=== PATIENT | female | born 1945 | race Hispanic/Latino ===

== ENCOUNTER 2020-02-24 07:30 | Observation (INO) | payer OTHER ==
[2020-02-22 12:59] VITALS: BP 177/72
[2020-02-22 13:56] LABS: BASOPHILS % (AUTO) 0.5 % (0.0-5.0); EOSINOPHILS % (AUTO) 1.2 % (0.0-8.0); HEMATOCRIT 37.8 % (36-48); LYMPHOCYTES % (AUTO) 44.9 % (21.0-51.0); MEAN CORPUSCULAR HEMOGLOBIN 32.2 pg (27.0-33.0); MEAN CORPUSCULAR HGB CONC 33.1 g/dL (32.0-36.0); MEAN CORPUSCULAR VOLUME 97.4 fL (79-99); MONOCYTES % (AUTO) 8.6 % (3.0-13.0); NEUTROPHILS % (AUTO) 44.6 % (40.0-77.0); PLATELET COUNT (AUTO) 232 K/uL (130-400); RED BLOOD CELL COUNT(AUTO) 3.88 MIL/uL (4.00-5.50); RED CELL DISTRIBUTION WIDTH 12.9 % (11.0-15.5); WHITE BLOOD COUNT (AUTO) 4.2 K/uL (4.8-10.8)
[2020-02-22 14:11] LABS: INR 0.97 (0.85-1.15); PARTIAL THROMBOPLASTIN TIME 29.2 SEC (26.3-35.5); PROTHROMBIN TIME 10.5 SEC (9.6-11.6)
[2020-02-22 14:12] LABS: CREATININE 0.8 mg/dL (0.5-1.5)
[2020-02-22 14:54] LABS: APPEARANCE,URINE Clear (CLEAR); BILIRUBIN,URINE Negative (NEGATIVE); COLOR,URINE Yellow (YELLOW); GLUCOSE, URINE (UA) Negative (NEGATIVE); KETONES,URINE Trace mg/dL (NEGATIVE); LEUKOCYTE ESTERASE ,URINE Small (NEGATIVE); NITRATE,URINE Negative (NEGATIVE); OCCULT BLOOD,URINE Negative (NEGATIVE); PH,URINE 5.5 (5.0-8.0); PROTEIN,URINE Negative (NEGATIVE)
[2020-02-22 15:09] LABS: BACTERIA,URINE Few /HPF (None Seen); MUCUS,URINE Rare LPF (None Seen); SQUAMOUS EPITHELIAL CELL,UR Moderate /HPF (0-2)
[2020-02-24] VITALS (25 sets, daily range): BP systolic 120–183; BP diastolic 55–82
[~2020-02-24] VITALS: Ht 148.6 cm; Wt 65.3 kg
[2020-02-24] MEDS ORDERED: LEVE500T19 PO ×2 (08:52→08:59)
[2020-02-24] MEDS ORDERED: AMLO2.5T4 PO ×2 (08:52→08:59)
[2020-02-24] MEDS ORDERED: LEVO5TAB13 PO (08:52)
[2020-02-24] MEDS ORDERED: FAMO40TA7 PO (08:52)
[2020-02-24] MEDS ORDERED: METO-408 PO (08:52)
[2020-02-24] MEDS ORDERED: OMEP40CA13 PO (08:52)
[2020-02-24] MEDS ORDERED: BACL5TAB PO (08:59)
[2020-02-24] MEDS ORDERED: DONE5TAB33 PO (08:59)
[2020-02-24] MEDS ORDERED: TOPI100C5 PO (08:59)
[2020-02-24] MEDS ORDERED: LOSA100T58 PO (08:59)
[2020-02-24] MEDS ORDERED: LEVO25TA54 PO (08:59)
[2020-02-24] MEDS ORDERED: ATOR40TA71 PO (08:59)
[2020-02-24] MEDS ORDERED: AEC81 PO (08:59)
[2020-02-24] MEDS ORDERED: FENTANYL CITRATE PF 50 MCG/1 ML 2ML VIAL ONE (09:15)
[2020-02-24] MEDS ORDERED: LIDOCAINE HCL 2% 20ML ONE (09:15)
[2020-02-24] MEDS ORDERED: IOHEXOL 350 MG/ML 100ML INFUS..BTL IV ONE (09:15)
[2020-02-24] MEDS ORDERED: MIDAZOLAM HCL 1 MG/ML 2ML VIAL ONE (09:15)
[2020-02-24] MEDS ORDERED: IOHEXOL-350 50ML VIAL IV ONE (09:15)
[2020-02-24] MEDS ORDERED: NITROGLYCERIN 2 MG/VIAL VIAL IV ONE (09:15)
[2020-02-24] MEDS ORDERED: BIVALIRUDIN 250 MG/VIAL IV ONE (09:15)
[2020-02-24] MEDS ORDERED: SODIUM CHLORIDE 0.9% 1000ML 1,000 ML IV ONE (09:21)
[2020-02-24] MEDS ORDERED: ASPIRIN 81MG TAB.CHEW ONE ×2 (10:30→10:31)
[2020-02-24] MEDS ORDERED: TICAGRELOR 90 MG TABLET ONE (10:31)
[2020-02-24] MEDS ORDERED: NITROGLYCERIN 0.4 MG SL TAB SL PRN (10:45)
[2020-02-24] MEDS ORDERED: SODIUM CHLORIDE 0.9% 1000ML 1,000 ML IV SCH (10:45)
[2020-02-24] MEDS ORDERED: DEXTROSE 50%-WATER 50 ML DISP.SYRIN IV PRN (10:45)
[2020-02-24] MEDS ORDERED: GLUCAGON 1MG KIT 1 MG ML IM PRN (10:45)
[2020-02-24] MEDS: TICAGRELOR 90 MG TABLET PO SCH (19:42)
[2020-02-24] MEDS ORDERED: LEVETIRACETAM 500 MG TABLET PO SCH (21:00)
[2020-02-24] MEDS ORDERED: AMLODIPINE BESYLATE 2.5 MG TAB PO SCH (21:00)
[2020-02-25 04:00] VITALS: BP 125/68
[2020-02-25 05:44] LABS: HEMATOCRIT 32.8 % (36-48); MEAN CORPUSCULAR HEMOGLOBIN 32.1 pg (27.0-33.0); MEAN CORPUSCULAR HGB CONC 33.2 g/dL (32.0-36.0); MEAN CORPUSCULAR VOLUME 96.5 fL (79-99); RED BLOOD CELL COUNT(AUTO) 3.4 MIL/uL (4.00-5.50); WHITE BLOOD COUNT (AUTO) 5.6 K/uL (4.8-10.8)
[2020-02-25 06:22] LABS: CREATININE 0.8 mg/dL (0.5-1.5)
[2020-02-25 06:31] LABS: POTASSIUM 3.9 mmol/L (3.5-5.1)
[2020-02-25 07:00] VITALS: BP 110/58
[2020-02-25] MEDS ORDERED: DONEPEZIL HCL 5 MG TAB PO SCH (09:00)
[2020-02-25] MEDS ORDERED: LEVETIRACETAM 500 MG TABLET PO SCH (09:00)
[2020-02-25] MEDS ORDERED: AMLODIPINE BESYLATE 5 MG TAB PO SCH (09:00)
[2020-02-25] MEDS ORDERED: ASPIRIN 81 MG EC TAB PO SCH (09:00)
[2020-02-25] MEDS ORDERED: LEVOTHYROXINE 25 MCG TABLET PO SCH (09:00)
[2020-02-25] MEDS ORDERED: ATORVASTATIN CALCIUM 40 MG TABLET PO SCH (09:00)
[2020-02-25] MEDS ORDERED: LOSARTAN 100 MG TABLET PO SCH (09:00)
[2020-02-25] MEDS: TICAGRELOR 90 MG TABLET PO SCH (09:08)
== END 2020-02-25 09:30 | disposition home or self-care (01) ==
LOC: DAH 07:30 → DAHIP 07:31 → 4AH 14:11
PROVIDERS: ADMIT Internal Medicine Cardiovascular Disease; ATTEND Internal Medicine Cardiovascular Disease
DX: I25.110 Atherosclerotic heart disease of native coronary artery with unstable angina pectoris (principal); I11.0 Hypertensive heart disease with heart failure; E78.5 Hyperlipidemia, unspecified; K21.9 Gastro-esophageal reflux disease without esophagitis; E03.9 Hypothyroidism, unspecified; F03.90 Unspecified dementia, unspecified severity, without behavioral disturbance, psychotic disturbance, mood disturbance, and anxiety; I50.32 Chronic diastolic (congestive) heart failure
CPT/HCPCS: 36415 ×3; 71045; 80048 ×2; 81001; 83880; 85025; 85027; 85610; 85730; 93005; 93458; 96360; 96361 ×2; A4216; A4221; A4222; A4223 ×2; A4606; A4663; C1769; C1874 ×2; C1887 ×2; C1894 ×2; C9600 ×2; G0378 ×18; J0583; J1644; J2250; J3010; J3490 ×2; J7030; Q9965; Q9967 ×2; 99156; 99157

== ENCOUNTER 2023-07-03 10:21 | Observation (INO) | payer OTHER ==
[2023-07-01 11:42] VITALS: BP 154/74; PULSE 56; RESP 18
[2023-07-01 11:55] LABS: BASOPHILS # (AUTO) 0.01 K/uL (0.00-0.20); BASOPHILS % (AUTO) 0.3 % (0.0-5.0); EOSINOPHILS # (AUTO) 0.03 K/uL (0.00-0.70); EOSINOPHILS % (AUTO) 0.9 % (0.0-8.0); HEMATOCRIT 33.7 % (36-48); LYMPHOCYTES # (AUTO) 1.3 K/uL (1.0-4.8); LYMPHOCYTES % (AUTO) 38.9 % (21.0-51.0); MEAN CORPUSCULAR HEMOGLOBIN 33.6 pg (27.0-33.0); MONOCYTES # (AUTO) 0.2 K/uL (0.1-1.0); MONOCYTES % (AUTO) 7.1 % (3.0-13.0); NEUTROPHILS # (AUTO) 1.8 K/uL (1.8-7.7); NEUTROPHILS % (AUTO) 52.8 % (40.0-77.0); PLATELET COUNT (AUTO) 149 K/uL (130-400); RED BLOOD CELL COUNT(AUTO) 3.51 MIL/uL (4.00-5.50); RED CELL DISTRIBUTION WIDTH 12.3 % (11.0-15.5); WHITE BLOOD COUNT (AUTO) 3.4 K/uL (4.8-10.8)
[2023-07-01 12:03] LABS: INR <= 0.93 (0.85-1.15); PROTHROMBIN TIME 10.6 SEC (9.6-11.6)
[2023-07-01 12:04] LABS: PARTIAL THROMBOPLASTIN TIME 29.4 SEC (26.3-35.5)
[2023-07-01 13:01] LABS: CREATININE 0.8 mg/dL (0.5-1.5); POTASSIUM 3.4 mmol/L (3.5-5.1)
[2023-07-03] VITALS (13 sets, daily range): BP systolic 130–158; BP diastolic 67–78; PULSE 53–62; RESP 13–20; O2SAT 95
[~2023-07-03] VITALS: Ht 154.9 cm; Wt 65.3 kg
[~2023-07-03 10:21] MED LIST: AEC81 PO; ATOR10 PO; BACL5TAB PO; CYAN1TAB14 PO; FAMO40TA7 PO; LEVE500T19 PO; LEVO25TA54 PO; LOSA100T59 PO; METO25TA6 PO; OMEP40CA21 PO; TOPI100C5 PO
[2023-07-03] MEDS: 0.9%NACL 1000ML 1,000 ML IV ONE (11:02)
[2023-07-03] MEDS ORDERED: FENTANYL CITRATE PF 50 MCG/1 ML 2ML VIAL ONE (12:42)
[2023-07-03] MEDS ORDERED: BIVALIRUDIN 250 MG/VIAL IV ONE (12:42)
[2023-07-03] MEDS ORDERED: HEPARIN 10,000 UNIT/10ML (1,000 UNIT/ML) VIAL ONE ×2 (12:42→12:43)
[2023-07-03] MEDS ORDERED: MIDAZOLAM HCL 1 MG/ML 2ML VIAL ONE (12:42)
[2023-07-03] MEDS ORDERED: LIDOCAINE HCL 400MG/20ML VIAL ONE (12:42)
[2023-07-03] MEDS ORDERED: NITROGLYCERIN 50MG VIAL ONE (12:42)
[2023-07-03] MEDS ORDERED: IOHEXOL-350 75 ML VIAL IV ONE (12:43)
[2023-07-03] MEDS ORDERED: IOHEXOL-350 50ML VIAL IV ONE (12:43)
[2023-07-03] MEDS ORDERED: IOHEXOL 350 MG/ML 100ML INFUS..BTL IV ONE (12:43)
[2023-07-03] MEDS: POTASSIUM CHLORIDE 10% ELIXIR 20 MEQ/15 ML UDCUP ONE (12:45)
[2023-07-03] MEDS ORDERED: ASPIRIN 81MG CHEW TAB ONE (13:22)
[2023-07-03] MEDS ORDERED: TICAGRELOR 90 MG TABLET ONE (13:23)
[2023-07-03] MEDS ORDERED: DEXTROSE 50%-WATER 50 ML DISP.SYRIN IV PRN (14:00)
[2023-07-03] MEDS: 0.9%NACL 1000ML 1,000 ML IV SCH (14:00)
[2023-07-03] MEDS ORDERED: HYDRALAZINE 20MG/ML VIAL IV PRN (14:00)
[2023-07-03] MEDS ORDERED: METOPROLOL TARTRATE 1 MG/ML 5ML VIAL IV PRN (14:00)
[2023-07-03] MEDS ORDERED: GLUCAGON 1MG KIT 1 MG ML IM PRN (14:00)
[2023-07-03] MEDS: NITROGLYCERIN 1GM OINT 1 INCH/1GM TD SCH (14:00)
[2023-07-03] MEDS ORDERED: NITROGLYCERIN 0.4 MG SL TAB SL PRN (14:00)
[2023-07-03] MEDS: ACETAMINOPHEN 325 MG TAB PO PRN (17:38)
[2023-07-03] MEDS: LEVETIRACETAM 500 MG TABLET PO ONE ×2 (21:25→21:35)
[2023-07-04] VITALS (7 sets, daily range): BP systolic 105–152; BP diastolic 57–82; PULSE 53–71; RESP 16–20; O2SAT 94
[2023-07-04] MEDS: LEVOTHYROXINE 25 MCG TABLET PO SCH (06:25)
[2023-07-04] MEDS: LEVETIRACETAM 500 MG TABLET PO SCH (09:00)
[2023-07-04] MEDS ORDERED: CETI10TA57 PO (09:45)
[2023-07-04 09:52] LABS: HEMATOCRIT 29.3 % (36-48); MEAN CORPUSCULAR HEMOGLOBIN 33.8 pg (27.0-33.0); MEAN CORPUSCULAR HGB CONC 35.2 g/dL (32.0-36.0); MEAN CORPUSCULAR VOLUME 96.1 fL (79-99); RED BLOOD CELL COUNT(AUTO) 3.05 MIL/uL (4.00-5.50); RED CELL DISTRIBUTION WIDTH 12.4 % (11.0-15.5); WHITE BLOOD COUNT (AUTO) 4.2 K/uL (4.8-10.8)
[2023-07-04 10:00] LABS: CREATININE 0.6 mg/dL (0.5-1.5); POTASSIUM 3.5 mmol/L (3.5-5.1)
[2023-07-04] MEDS ORDERED: CLOP-31 PO (10:09)
[2023-07-04] MEDS ORDERED: ONDA-105 PO (10:09)
[2023-07-04] MEDS: CLOPIDOGREL 75MG TAB PO SCH (10:39)
[2023-07-04] MEDS: METOPROLOL TARTRATE 25 MG TAB PO SCH (10:40)
[2023-07-04] MEDS: LOSARTAN 100 MG TABLET PO SCH (10:40)
[2023-07-04] MEDS: TOPIRAMATE 100 MG TAB PO SCH (10:40)
[2023-07-04] MEDS: ASPIRIN 81 MG EC TAB PO SCH (10:40)
[2023-07-04] MEDS: BACLOFEN 10 MG TABLET PO SCH (10:41)
[2023-07-04] MEDS: ONDANSETRON 4MG INJ IVP PRN (10:44)
[2023-07-04] MEDS ORDERED: NON-FORMULARY MEDICATION 1 EACH (Baclofen 5 MG) PO SCH (14:00)
[2023-07-04] MEDS ORDERED: TOPIRAMATE 100 MG PO SCH (21:00)
[2023-07-04] MEDS ORDERED: LEVETIRACETAM 500 MG TABLET PO SCH ×3 (21:00)
[2023-07-04] MEDS ORDERED: ATORVASTATIN 10 MG TABLET PO SCH (21:00)
[2023-07-04] MEDS ORDERED: NON-FORMULARY MEDICATION 1 EACH (Famotidine 40 MG) PO SCH (21:00)
[2023-07-04] MEDS ORDERED: FAMOTIDINE 20MG TAB PO SCH (21:00)
[2023-07-05] MEDS ORDERED: LEVETIRACETAM 500 MG TABLET PO SCH (09:00)
[2023-07-05] MEDS ORDERED: PANTOPRAZOLE 40 MG TAB DR PO SCH (09:00)
[2023-07-05] MEDS ORDERED: NON-FORMULARY MEDICATION 1 EACH (Omeprazole 40 MG) PO SCH (09:00)
== END 2023-07-04 13:00 | disposition home or self-care (01) ==
LOC: DAH 10:21 → DAHIP 10:22 → DAH 10:22 → 2DH 15:44
PROVIDERS: ADMIT Internal Medicine Cardiovascular Disease; ATTEND Internal Medicine Cardiovascular Disease
DX: I25.118 Atherosclerotic heart disease of native coronary artery with other forms of angina pectoris (principal); I10 Essential (primary) hypertension; E87.6 Hypokalemia; D64.9 Anemia, unspecified; E66.3 Overweight; K21.9 Gastro-esophageal reflux disease without esophagitis; F03.90 Unspecified dementia, unspecified severity, without behavioral disturbance, psychotic disturbance, mood disturbance, and anxiety; E03.9 Hypothyroidism, unspecified; E78.5 Hyperlipidemia, unspecified; Z68.27 Body mass index [BMI] 27.0-27.9, adult; Z86.2 Personal history of diseases of the blood and blood-forming organs and certain disorders involving the immune mechanism; Z79.82 Long term (current) use of aspirin
CPT/HCPCS: 80048 ×2; 85025; 85610; 85730; 36415 ×3; 71045; 93005; 93458; 84132; 96374; 85027; C1887; C1894 ×2; C1874; C1760; C1769; Q9965; J3010; J3490 ×2; J7030; J1644 ×2; J2250; J0583; Q9967 ×2; A4215; A4223 ×3; A4222; A4221; A4663; A4216; A4606; C9600; G0378 ×4; J2405; 99156; 99157